=== PATIENT | male | born 1995 | race Caucasian/White ===

== ENCOUNTER 2017-01-15 20:47 | Emergency (ER) | payer OTHER ==
[2017-01-15 21:00] VITALS: BP 123/66; PULSE 58; TEMP 98.1; BMI 35.7
--- NOTE | 2017-01-15 21:32 | PDOC ---
History of Present Illness - General Chief Complaint: Chest Pain Stated Complaint: CHEST PAIN Time Seen by Provider: 01/15/17 20:50 - History of Present Illness Initial Comments: 01/15/17 21:27 "The patient is a 21 year old male with no significant past medical history, who presents to the ED with chest pain. Patient states he has been experiencing this chest pain intermittently for 2 years now. He was worked up by his PMD, who did EKGs, bloodwork, and an echo that were all normal. Since then, he has had recurrences of his chest pain every few weeks. He denies SOB. Denies F/C. Patient describes the chest pain as sharp. Patient denies any alleviating or worsening factors. Pain is not exertional, not pleuritic. Pt denies LE swelling , denies recent travel/immobilization. Denies cocaine or other substance use. Past History - Past Medical History Allergies/Adverse Reactions: Allergies Allergy/AdvReac Type Severity Reaction Status Date / Time No Known Allergies Allergy Unverified 01/15/17 20:49 Home Medications: Ambulatory Orders NK [No Known Home Medication] 01/15/17 - Immunization History Immunization Up to Date: Yes - Suicide/Smoking/Psychosocial Hx Smoking History: Never smoked Have you smoked in the past 12 months: No Number of Cigarettes Smoked Daily: 0 Information on smoking cessation initiated: No Hx Alcohol Use: No Drug/Substance Use Hx: No Substance Use Type: None Review of Systems - Review of Systems Comments:: 01/15/17 21:30 "GENERAL/CONSTITUTIONAL: No fever or chills. No weakness. HEAD, EYES, EARS, NOSE AND THROAT: No change in vision. No ear pain or discharge. No sore throat. CARDIOVASCULAR: + mid chest pain. No shortness of breath. RESPIRATORY: No cough, wheezing, or hemoptysis. GASTROINTESTINAL: No nausea, vomiting, diarrhea or constipation. GENITOURINARY: No dysuria, frequency, or change in urination. MUSCULOSKELETAL: No joint or muscle swelling or pain. No neck or back pain. SKIN: No rash NEUROLOGIC: No headache, vertigo, loss of consciousness, or change in strength/ sensation. ENDOCRINE: No increased thirst. No abnormal weight change. HEMATOLOGIC/LYMPHATIC: No anemia, easy bleeding, or history of blood clots. ALLERGIC/IMMUNOLOGIC: No hives or skin allergy. " *Physical Exam - Vital Signs Last Vital Signs Temp Pulse Resp BP Pulse Ox 98.1 F 58 L 14 123/66 100 01/15/17 20:51 01/15/17 20:51 01/15/17 20:51 01/15/17 20:51 01/15/17 20:51 - Physical Exam Comments: 01/15/17 21:31 "GENERAL: Awake, alert, and fully oriented, in no acute distress HEAD: No signs of trauma EYES: PERRLA, EOMI, sclera anicteric, conjunctiva clear ENT: Auricles normal inspection, hearing grossly normal, nares patent, oropharynx clear without exudates. Moist mucosa NECK: Nontender, no stepoffs, Normal ROM, supple, no lymphadenopathy, JVD, or masses LUNGS: Breath sounds equal, clear to auscultation bilaterally. No wheezes, and no crackles HEART: Left chest wall is mildly tender to palpation. Regular rate and rhythm, normal S1 and S2, no murmurs, rubs or gallops ABDOMEN: Soft, nontender, normoactive bowel sounds. No guarding, no rebound. No masses EXTREMITIES: Normal range of motion, no edema. No clubbing or cyanosis. No cords, erythema, or tenderness NEUROLOGICAL: Cranial nerves II through XII intact. 5/5 strength and sensation in all extremities, Normal speech, normal gait SKIN: Warm, Dry, normal turgor, no rashes or lesions noted. " Heart Score/ECG Review - History History: Slightly suspicious - Electrocardiogram EKG: Normal - Age Age: </= 45 - Risk Factors Based on the list above the patient has:: No risk factors known - Troponin Troponin: </= normal limit - Score Heart Score - Total: 0 - ECG Impressions Comment:: 01/15/17 23:15 NSR, no LALO/STDs, no TWIs, intervals wnl, axis wnl ED Treatment Course - LABORATORY CBC & Chemistry Diagram: 01/15/17 21:07 01/15/17 21:07 - ADDITIONAL ORDERS Additional order review: Laboratory Results 01/15/17 21:07 Sodium 137 Potassium 4.1 Chloride 102 Carbon Dioxide 28 Anion Gap 7 L BUN 18 Creatinine 1.0 Creat Clearance w eGFR > 60 Random Glucose 75 Calcium 9.6 Total Bilirubin 0.5 AST 22 ALT 41 Alkaline Phosphatase 79 Creatine Kinase 103 Total Protein 8.2 Albumin 4.5 01/15/17 21:07 RBC 5.79 H MCV 81.4 MCHC 33.0 RDW 13.6 MPV 9.7 Neutrophils % 59.7 Lymphocytes % 25.1 Monocytes % 6.1 Eosinophils % 7.9 H Basophils % 1.2 - RADIOLOGY Radiology Studies Ordered: Category Date Time Status CHEST PA & LAT [RAD] Stat Radiology 01/15/17 21:07 Taken Medical Decision Making - Medical Decision Making 01/15/17 21:31 21 M with no PMH presenting with 2 years of intermittent chest pain. Very atypical in nature, likely msk in etiology. Pt with no cardiac risk factors. Pt also with no PE risk factors, PERC score 0. - Labs - CXR - F/u cardiology 01/15/17 23:04 EKG normal. CXR clear. Labs unremarkable. Pt reassessed - reports that his pain is much improved since earlier today. Troponin still pending in lab. However, pt and family unwilling to wait any longer. I believe it is reasonable for pt and family to leave at this time. My suspicion for ACS is extremely low given pt is healthy 21 yo with no medical problems and normal EKG. He is clinically well appearing with normal vitals and has plans to f/u with cardiology. I will f/u troponin and call pt back if it returns abnormal. Pt clinically stable for DC at this time. *DC/Admit/Observation/Transfer Diagnosis at time of Disposition: Chest pain - Discharge Dispostion Disposition: HOME Condition at time of disposition: Good - Referrals Referrals: Jhony Hankins MD [Primary Care Provider] - - Patient Instructions Printed Discharge Instructions: DI for Atypical Chest Pain Additional Instructions: Follow up with a resident services manager as soon as possible for further evaluation of your chest pain. If you experience worsening chest pain, shortness of breath, or any other concerning symptoms, return to the ER immediately. - Attestations Physician Attestion: 01/15/17 23:08 I, Dr. Tomas Epstein MD, attest that this document has been prepared under my direction and personally reviewed by me in its entirety. I further attest, that it accurately reflects all work, treatment, procedures and medical decision -making performed by me.
[2017-01-15 22:23] LABS: BASOPHIL 1.2 % (0-2.0); EOSINOPHIL 7.9 % (0-4.5); MCH 26.9 pg (25.7-33.7); MEAN CELL VOLUME 81.4 fl (80-96); MEAN PLT VOLUME 9.7 fl (7.5-11.1); NEUTROPHILS 59.7 % (42.8-82.8); PLATELET COUNT 305 K/MM3 (134-434); RDW 13.6 % (11.9-15.9); WHITE BLOOD COUNT 11.5 K/mm3 (4.0-10.0)
[2017-01-15 22:49] LABS: ALBUMIN 4.5 g/dl (3.4-5.0); ANION GAP 7 (8-16); BILIRUBIN,TOTAL 0.5 mg/dL (0.2-1.0); CALCIUM 9.6 mg/dL (8.5-10.1); CO2 28 mmol/L (21-32); GLUCOSE,RANDOM 75 mg/dL (74-106); SGOT/AST 22 U/L (15-37); SGPT/ALT 41 U/L (12-78); TOT PROT 8.2 g/dl (6.4-8.2)
[2017-01-15 22:50] LABS: ALK PHOS 79 U/L (45-117)
[2017-01-16 00:30] LABS: CPK 101 IU/L (39-308); TROPONIN I < 0.02 ng/ml (0.00-0.05)
--- NOTE | 2017-01-16 12:45 | EKG ---
Test Reason : Blood Pressure : / mmHG Vent. Rate : 066 BPM Atrial Rate : 066 BPM P-R Int : 156 ms QRS Dur : 086 ms QT Int : 404 ms P-R-T Axes : 054 064 018 degrees QTc Int : 423 ms NORMAL SINUS RHYTHM NORMAL ECG NO PREVIOUS ECGS AVAILABLE Confirmed by GEOVANNY WEEKS MD ([id number]) on 01/16/2017 12:45:09 PM Referred By: DR CALZADA Confirmed By:GEOVANNY WEEKS MD
== END 2017-01-15 23:13 | disposition home or self-care (01) ==
LOC: FER 20:47
DX: R07.9 Chest pain, unspecified (principal)
CPT/HCPCS: 36415; 71020-TC; 80053; 84484; 85025; 93005; 99284-25